=== PATIENT | female | born 1990 | race Caucasian/White ===

== ENCOUNTER 2016-12-14 18:28 | Observation (INO) | payer BC ==
[2016-12-14] MEDS ORDERED: NS 0.9% 1000 ML* 1,000 ML IV ONE ×2 (18:48→19:07)
[2016-12-14] MEDS ORDERED: Insulin REGULAR(*) 1 UNITS UNIT IV ONE (18:48)
[2016-12-14 19:08] LABS: Comments Flag Yes; Hematocrit 42 % (35-47); Hemoglobin 14.3 g/dl (12.0-16.0); Mean Corpuscular HGB Conc 34 g/dl (31-36); Mean Corpuscular Hemoglobin 30 pg (27-31); Mean Corpuscular Volume 88 fL (80-97); Red Blood Count 4.82 10^6/ul (4.0-5.4); Red Cell Distribution Width 13 % (10.5-15); White Blood Count 13.3 10^3/ul (3.5-10.8)
[2016-12-14 19:09] LABS: Add Diff/Slide Review? Slide Review Added
[2016-12-14 19:15] LABS: ALT 10 U/L (7-52); AST 11 U/L (13-39); Albumin 4.6 g/dL (3.2-5.2); Alkaline Phosphatase 54 U/L (34-104); Anion Gap 16 mmol/L (2-11); BUN/Creatinine Ratio 16.9 (8-20); Blood Urea Nitrogen 15 mg/dL (6-24); C Reactive Protein 2.45 mg/L (< 5.00); CO2 Carbon Dioxide 21 mmol/L (22-32); Chloride 94 mmol/L (101-111); Creatine Kinase 36 U/L (10-223); EGFR African American 98.6 (>60); EGFR Non-African American 76.7 (>60); Globulin 3.3 g/dL (2-4); Magnesium 1.8 mg/dL (1.9-2.7); Sodium 131 mmol/L (133-145); Total Protein 7.9 g/dL (6.4-8.9)
[2016-12-14 19:18] LABS: Troponin I 0.01 ng/mL (<0.04)
[2016-12-14 19:23] LABS: Glucose 508 mg/dL (70-100)
[2016-12-14] MEDS ORDERED: Ondansetron INJ* 2 MG/ML VIAL IV ONE (19:25)
--- NOTE | 2016-12-14 19:31 | RAD ---
INDICATION: Hyperglycemia. COMPARISON: None. TECHNIQUE: Single AP portable view of the chest was obtained. FINDINGS: Image quality is compromised due to the relative inferiority of a portable chest x-ray. The heart and mediastinum exhibit normal size and contour. The lungs are grossly clear. There is no evidence of a large pleural effusion. Visualized bones are normal for the patient's age. IMPRESSION: No radiographic evidence for acute cardiopulmonary abnormality on this portable chest x-ray.
[2016-12-14 19:51] LABS: Urine Bacteria Absent (Absent); Urine Bilirubin Negative (Negative); Urine Glucose 3+(>=500 mg/dL) (Negative); Urine Nitrite Negative (Negative)
[2016-12-14 19:53] LABS: Venous Bicarbonate HCO3 18.1 mmol/L (24-28)
[2016-12-14] MEDS ORDERED: Dextrose 50% Syringe 50 ML* 25 GM/50 ML SYRINGE IV PUSH PRN (19:58)
[2016-12-14] MEDS ORDERED: NS 0.9% 1000 ML* 2,000 ML IV ONE (19:58)
[2016-12-14] MEDS ORDERED: Ondansetron INJ* 2 MG/ML VIAL IV PRN (19:58)
[2016-12-14] MEDS ORDERED: Acetaminophen TAB* 325 MG PO PRN (19:58)
[2016-12-14] MEDS ORDERED: Magnesium Sulfate 2 GM IV* 2 GM/50 ML BAG IVPB ONE (20:13)
[2016-12-14] MEDS: NS 0.9% 1000 ML* 1,000 ML IV SCH (21:46)
[2016-12-14 22:24] LABS: BUN/Creatinine Ratio 18.3 (8-20); Calcium 7.7 mg/dL (8.6-10.3); EGFR African American 155.4 (>60); EGFR Non-African American 120.8 (>60); Potassium 3.5 mmol/L (3.5-5.0)
--- NOTE | 2016-12-14 22:36 | HP ---
CC: HISTORY AND PHYSICAL: DATE OF ADMISSION: 12/14/16 PRIMARY CARE PROVIDER: ATTENDING PHYSICIAN WHILE IN THE HOSPITAL: Dr. Jm Flynn * (report dictated by Yoly Catalan NP). CHIEF COMPLAINT: Nausea and vomiting. HISTORY OF PRESENT ILLNESS: Ms. Casper is a 26-year-old female patient with a history of type 1 diabetes who comes in today, says in the last couple of weeks her sugars have been running in the 200s to 300s, at times in the 400. She says that her A1c is normally right around 6.0 to 6.5. She says that she today woke up, felt nauseated, then she vomited about 5 times. She started to feel herself getting dehydrated. She was concerned and came into the ER because she has had issues in the past with dehydration and DKA. She says that she does not have any stomach pain. Denies having any chest pain or shortness of breath. She denies having any abdominal discomfort. She denies having any nausea currently. She says after fluids she is feeling a little bit better. She denied having any fevers or chills. No upper respiratory type symptoms. She denied having any diarrhea and denied having any dysuria or frequency. She came into the ED, was evaluated in here today and it was noted that she appeared to have mild DKA, so the hospitalist service was asked to evaluate for admission. PAST MEDICAL HISTORY: Significant for type 1 diabetes. PAST SURGICAL HISTORY: She has had D and C x2. HOME MEDICATIONS: Include: 1. Insulin NovoLog basal rate per pump and boluses as directed. 2. Zofran 4 mg sublingual every 6 hours as needed. 3. NuvaRing. ALLERGIES TO MEDICATIONS: Include no known drug allergies. FAMILY HISTORY: Reviewed, noncontributory. She says that her parents do not have diabetes. They do not have heart disease and she denies them having any history of cancer. SOCIAL HISTORY: She does not smoke. She does no drink. She is . Surrogate decision maker is her mother. She does work at [employer]. REVIEW OF SYSTEMS: There is no documented fever. She denied having any significant weight change. There was no double vision. She denies having any ear discharge. There is no rhinorrhea. No sore throat. No thyroid enlargement. She denied having any chest pain. There was no orthopnea. There was no nocturnal dyspnea. There was no abdominal pain. There was no nausea. There was some vomiting. There is no dysuria. No frequency. No seizure. No loss of consciousness. No pruritus and no skin ulcerations. Review of 14 systems completed, all others negative. PHYSICAL EXAMINATION GENERAL: At this time, Ms. Casper is a 26-year-old female patient. She appears to be well nourished, well-developed. She does not appear to be in any acute distress. VITAL SIGNS: Blood pressure 108/61, pulse 120, respirations 18, O2 sat 99%, and temperature 98.5. HEENT: Head is atraumatic and normocephalic. Eyes: EOMs are intact. Sclerae anicteric and not pale. Throat: Oral mucosa appears to be dry. No oropharyngeal erythema. NECK: Supple. LUNGS: Clear to auscultation bilaterally. No wheezes, rales, or rhonchi. HEART: Sounds S1, S2. She is tachycardic. ABDOMEN: Soft, flat, nontender. Bowel sounds present. EXTREMITIES: Pulses 2+ throughout. Able to move all 4 extremities with 5/5 strength. NEUROLOGICAL: The patient is awake, alert and oriented x3. Tongue midline. Apartment Rental Agent are equal. She had no gross focal deficits. SKIN: Intact. DIAGNOSTIC STUDIES/LAB DATA: Labs today revealed WBC 13.3, RBC of 4.82, hemoglobin 14.3, hematocrit of 42, platelet count of 195. INR 0.95, PTT of 20.6. The pH was 76, pCO2 was 47, pO2 14, bicarb 18. Chemistry revealed sodium 131, potassium 4.0, chloride 94, bicarb 21, BUN 15, anion gap was 16, creatinine 0.89, glucose was 508, lactic 2.2, calcium 10, total cholesterol 0.9 , AST 11, ALT 10. Urine negative. Albumin 4.6, troponin 0.01. Urine showed 2+ ketones, 1+ blood, present squamous epithelial cells, 3+ bacteria. She did have a chest x-ray obtained today, which showed no radiographic evidence for acute cardiopulmonary disease. She had an EKG obtained today, shows sinus tachycardia, rate of 115. No ST elevation or T- wave inversions. Old medical records were reviewed. ASSESSMENT AND PLAN: Ms. Casper is a 26-year-old female patient coming into the ER today with complaints of nausea and now vomiting. We were asked to evaluate for admission as it appeared that she is in mild diabetic ketoacidosis. She will be admitted under observation status for: 1. Diabetic ketoacidosis. At this point, I do not think she needs insulin drip , she was bolused down here. She will be again given fluids. We will give her 2 more L wide open with normal saline 150 an hour. I am going to continue her basal rate of subcu insulin. We will check fingerstick every 2 hours. In addition to this, she will be n.p.o. until her gap closes, we will get BMPs every 6 hours to follow closely and fingersticks every 2 hours to monitor her. Should we not be able to close the gap with this approach, then we would certainly consider starting her on the insulin drip, but again her bicarb is 21 and her anion gap is 16 and hopefully, we can close this with fluids and the one bolus of IV insulin she got down here, we will follow her closely. 2. Type 1 diabetes, again not well controlled. I am going to add on an A1c and we will continue to follow. We will get her back on her regimen after we can close the gap and resolve mild diabetic ketoacidosis. 3. Nausea and vomiting. I suspect this is probably a viral gastroenteritis. We will keep her hydrated. We will follow her closely. If she spikes any fevers, then I would have a low threshold to panculture her. We will obtain imaging, but she has a benign abdominal exam at this point, so I think we can monitor. 4. DVT prophylaxis. She is low risk. She will be placed on SCDs. 5. Code status. Full code. 6. Fluids, electrolytes, nutrition. She is n.p.o. pending her laboratory findings and then we could consider starting a clear liquid diet after again her anion gap resolves and her mild acidosis resolves. TIME SPENT: Time spent on the admission 60 minutes with greater than half the time spent [id number] with the patient obtaining my history and physical, other half time was spent going over the plan of care with the patient and implementing plan of care. I did discuss the plan of care with my attending physician, Dr. Flynn, she is in agreement. YOLY CATALAN, CLOTH BLEACHING RANGE TENDER [id number]/[facility] #: [id number] [facility]ITALPey[facility]
[2016-12-14] MEDS: Insulin LISPRO* 1 UNITS UNIT SUBCUT SCH (22:44)
[2016-12-15] MEDS ORDERED: traMADol TAB* 50 MG PO PRN (02:15)
--- NOTE | 2016-12-15 03:50 | ED ---
Aaliyah Fitzpatrick Thomas, scribed for Angelica Hayes MD on 12/14/16 at 1919 . HPI Diabetic - HPI Summary HPI Summary: The pt is a 26 y/o F with a Hx of Type 1 DM who presents to the ED c/o eight vomiting episodes that began today at 16:30. The vomiting appears to be bile, and she has vomited approximately 150cc of bile in the ED. The vomiting is aggravated and alleviated by nothing. The patient has treated the vomiting with Zofran NAVAL ARCHITECT. She last took Zofran at 16:00. She uses an insulin pump. The patient has not had insulin since vomiting. She reports that her blood glucose measurements have been erratic in the last few weeks. She is not on any medications other than her insulin pump and Zofran PRN. The patient also complains of generalized illness for the last few days. The patient speculates that this episode may have been provoked by stress. She has not had DKA in a long time. The patient reports that her A1c is 6.4. She does not have any end- stage complications of DM. PMHx: Type 1 DM (diagnosed at 11). PSHx: D&C (x2). SHx: no smoking, no alcohol use, no illicit drug use. LNMP 10/08/16. This is her second month of the [facility]. She is accompanied by Dr. Chavarria, a principal examiner, who politely excuses himself when the patient is examined. Patient s medication reviewed this visit. - History Of Current Complaint Chief Complaint: EDNauseaVomitDiarrh Time Seen by Provider: 12/14/16 18:48 Hx Obtained From: Patient, Other: - She is accompanied by Dr. Chavarria, a principal examiner, who politely excuses himself when the patient is examined Hx Last Menstrual Period: 10/08/16 Onset/Duration: Sudden Onset, Lasting Hours - started vomitted at 16:30 today, Still Present Timing: Constant Severity Initially: Moderate Severity Currently: Severe Character: Alert Aggravating: Nothing Alleviating: Nothing Associated Signs & Symptoms: Nausea, Vomiting - 8x since 16:30 Related History: Compliant, DM I, Hx of DKA - although "a very long time ago", Insulin Pump - Risk Factors Cardiac Risk Factors: Diabetes - Allergies/Home Medications Allergies/Adverse Reactions: Allergies Allergy/AdvReac Type Severity Reaction Status Date / Time No Known Allergies Allergy Verified 12/14/16 18:37 Home Medications: Home Medications Insulin Infusion Pump 1 units INTRADERM SEE INSTRUCTIONS 12/15/16 [History Confirmed 12/15/16] Zofran 4 MG TAB 4 mg SL Q6HR PRN 12/15/16 [History Confirmed 12/15/16] PMH/Surg Hx/FS Hx/Imm Hx Previously Healthy: No Endocrine/Hematology History: Reports: Hx Diabetes - Hx Type 1 DM (diagnosed when 11) Cardiovascular History: Denies: Hx Myocardial Infarction - Surgical History Surgery Procedure, Year, and Place: D&C (x2) Infectious Disease History: No Infectious Disease History: Denies: Traveled Outside the [place] in Last 30 Days - Family History Known Family History: Positive: Other - POS: breast CA - Social History Occupation: Employed Full-time Alcohol Use: None Substance Use Type: Reports: None Smoking Status (MU): Never Smoked Tobacco Review of Systems Positive: Other - POS: generalized illness (for the last few days), erratic blood glucose (in the last few weeks). Negative: Fever Eyes: Negative ENT: Negative Cardiovascular: Negative Respiratory: Negative Positive: Vomiting - 8x and in the ED, Nausea Positive: no symptoms reported Skin: Negative Neurological: Negative Psychological: Normal All Other Systems Reviewed And Are Negative: Yes Physical Exam Triage Information Reviewed: Yes Vital Signs On Initial Exam: Initial Vitals Temp Pulse Resp BP Pulse Ox 98.5 F 115 18 116/73 100 12/14/16 18:34 12/14/16 18:34 12/14/16 18:34 12/14/16 18:34 12/14/16 18:34 Vital Signs Reviewed: Yes Appearance: Positive: No Pain Distress, Well-Nourished, Ill-Appearing - mild Skin: Positive: Warm, Skin Color Reflects Adequate Perfusion Head/Face: Positive: Normal Head/Face Inspection Eyes: Positive: Conjunctiva Clear ENT: Positive: Normal ENT inspection, Pharynx normal Neck: Positive: Supple Respiratory/Lung Sounds: Positive: Clear to Auscultation, Breath Sounds Present , Other - No respiratory distress Cardiovascular: Positive: Pulses are Symmetrical in both Upper and Lower Extremities, Tachycardia, Other - She is tachycardic. Regular rhythm. Brisk cap refill.. Negative: Murmur Abdomen Description: Positive: Nontender, No Organomegaly, Soft Bowel Sounds: Positive: Present Musculoskeletal: Positive: Strength/ROM Intact Neurological: Positive: Sensory/Motor Intact, Alert, Oriented to Person Place, Time, Facial Symmetry, Speech Normal Psychiatric: Positive: Normal - Ramon Coma Scale Coma Scale Total: 15 Diagnostics - Vital Signs Vital Signs Temp Pulse Resp BP Pulse Ox 12/14/16 18:46 122 108/61 98 12/14/16 18:44 120 99 12/14/16 18:34 98.5 F 115 18 116/73 100 - Laboratory Lab Results: Lab Results 12/14/16 12/14/16 12/14/16 Range/Units 18:51 18:51 18:51 WBC 13.3 H (3.5-10.8) 10^3/ul RBC 4.82 (4.0-5.4) 10^6/ul Hgb 14.3 (12.0-16.0) g/dl Hct 42 (35-47) % MCV 88 (80-97) fL MCH 30 (27-31) pg MCHC 34 (31-36) g/dl RDW 13 (10.5-15) % Plt Count Pending Neut % (Auto) 79.3 (38-83) % Lymph % (Auto) 16.8 L (25-47) % Millard % (Auto) 3.3 (1-9) % Eos % (Auto) 0.1 (0-6) % Baso % (Auto) 0.5 (0-2) % Absolute Neuts (auto) 10.5 H (1.5-7.7) 10^3/ul Absolute Lymphs (auto) 2.2 (1.0-4.8) 10^3/ul Absolute Monos (auto) 0.4 (0-0.8) 10^3/ul Absolute Eos (auto) 0 (0-0.6) 10^3/ul Absolute Basos (auto) 0.1 (0-0.2) 10^3/ul Absolute Nucleated RBC 0 10^3/ul Nucleated RBC % 0 INR (Anticoag Therapy) 0.94 (0.89-1.11) APTT 20.6 L (26.0-36.3) seconds Sodium 131 L (133-145) mmol/L Potassium 4.0 (3.5-5.0) mmol/L Chloride 94 L (101-111) mmol/L Carbon Dioxide 21 L (22-32) mmol/L Anion Gap 16 H (2-11) mmol/L BUN 15 (6-24) mg/dL Creatinine 0.89 (0.51-0.95) mg/dL Est GFR ( Amer) 98.6 (>60) Est GFR (Non-Af Amer) 76.7 (>60) BUN/Creatinine Ratio 16.9 (8-20) Glucose Pending Calcium 10.0 (8.6-10.3) mg/dL Magnesium 1.8 L (1.9-2.7) mg/dL Total Bilirubin 0.90 (0.2-1.0) mg/dL AST 11 L (13-39) U/L ALT 10 (7-52) U/L Alkaline Phosphatase 54 (34-104) U/L Total Creatine Kinase 36 (10-223) U/L Troponin I 0.01 (<0.04) ng/mL C-Reactive Protein 2.45 (< 5.00) mg/L Total Protein 7.9 (6.4-8.9) g/dL Albumin 4.6 (3.2-5.2) g/dL Globulin 3.3 (2-4) g/dL Albumin/Globulin Ratio 1.4 (1-3) Beta HCG, Quant Pending Result Diagrams: 12/14/16 18:51 12/14/16 22:01 Lab Statement: Any lab studies that have been ordered have been reviewed, and results considered in the medical decision making process. - Radiology CXR Xray Interpretation: No Acute Changes - CXR is negative for acute cardiopulmonary abnormality. ED physician has read this report and agrees. Radiology Interpretation Completed By: Radiologist - EKG 19:27 Cardiac Rate: Tachycardia - Sinus tachycardia. Nml AV/IV/QTc/[place]. Re-Evaluation - Re-Evaluation First Eval Re-Evaluation Time: 19:20 - advised of lab results and need for admission. No further vomiting in ED. Change: Improved Diabetic Course/Dx - Course Course Of Treatment: Pt given IV fluids, zofran 4mg IV and 10U regular insulin IV, and insulin drip requested from pharmacy pending labs when initial FS glucose was too high to measure. Initial hypotension 77/52 responded rapidly to IV fluids. Pt admitted for glucose control and management of vomiting. - Diagnoses Differential Dx: Diabetic Ketoacidosis, Hyperglycemia, Sepsis Provider Diagnoses: DKA, type 1, Vomiting - Physician Notifications Discussed Care Of Patient With: Jm Flynn Time Discussed With Above Provider: 19:30 Instructed by Provider To: Admit As Observation - I made Dr. Flynn, hospitalist, aware of the patient. - Critical Care Time Critical Care Time: 30-74 min - 30 minutes Discharge - Discharge Plan Condition: Stable Disposition: ADMITTED TO [facility] documentation as recorded by the Aaliyah quinn Thomas accurately reflects the service I personally performed and the decisions made by Freddy kat Barbara J, MD.
[2016-12-15 04:14] LABS: Hematocrit 33 % (35-47); Hemoglobin 11.2 g/dl (12.0-16.0); Mean Corpuscular HGB Conc 34 g/dl (31-36); Mean Corpuscular Hemoglobin 30 pg (27-31); Mean Corpuscular Volume 88 fL (80-97); Mean Platelet Volume 12 um3 (7.4-10.4); Red Blood Count 3.71 10^6/ul (4.0-5.4); Red Cell Distribution Width 12 % (10.5-15)
[2016-12-15 04:15] LABS: Add Diff/Slide Review? Slide Review Added; Comments Flag Yes
[2016-12-15] MEDS: Insulin LISPRO* 1 UNITS UNIT SUBCUT SCH ×3 (04:25→10:25)
[2016-12-15 04:37] LABS: BUN/Creatinine Ratio 14.5 (8-20); Calcium 7.7 mg/dL (8.6-10.3); EGFR African American 171.8 (>60); EGFR Non-African American 133.6 (>60)
[2016-12-15] MEDS: NS 0.9% 1000 ML* 1,000 ML IV SCH (04:39)
[2016-12-15 10:37] LABS: BUN/Creatinine Ratio 12.1 (8-20); Calcium 7.8 mg/dL (8.6-10.3); EGFR African American 161.6 (>60); EGFR Non-African American 125.7 (>60); Potassium 3.6 mmol/L (3.5-5.0)
[2016-12-15 13:04] VITALS: BP 106/68
--- NOTE | 2016-12-16 04:32 | DS ---
DISCHARGE SUMMARY: DATE OF ADMISSION: 12/14/16 DATE OF DISCHARGE: 12/15/16 DISCHARGE DIAGNOSIS: Diabetic ketoacidosis. SECONDARY DIAGNOSIS: Diabetes, type 1, on insulin pump. MEDICATIONS AT DISCHARGE: Include: 1. Insulin NovoLog continuous infusion via insulin pump. 2. Zofran 4 mg every 6 hours p.r.n. nausea and vomiting. LABORATORY DATA AND STUDIES PERFORMED DURING THE HISTORY STAY: Included: On , white blood cell count of 9.0, hemoglobin of 11.2, hematocrit of 33, and platelets of 180. Sodium was 135, potassium 3.6, chloride 111, carbon dioxide 18, BUN 7, creatinine 0.58. Last blood glucose measurement was 169 prior to discharge. Portable chest x-ray obtained at admission, impression: "No radiographic evidence of acute cardiopulmonary abnormality of this portable chest x-ray." The patient's urinalysis was positive for ketones and trace amount of blood, otherwise unremarkable. HOSPITALIZATION COURSE: Daysi Casper is a 26-year-old female with history of diabetes type 1, on insulin pump, who presented to the hospital complaining of nausea and vomiting. She was noted to have mild acidosis with a pH of 7.26 on her ABG. She was diagnosed with mild DKA and placed on the medical floor. She was bolused with IV insulin, but later on she was continued on insulin subcutaneously with generous intravenous fluid resuscitation. She did very well during her less than 24-hour hospital stay. By the time of discharge, she was able to tolerate her diet. She had no complaints and she stated that in fact the nausea and vomiting were likely due to her uncontrolled sugars and mild DKA. She stated that she has lots of stressors at home and work that could have contributed to her significant blood sugars. There are no medication changes at discharge. PHYSICAL EXAMINATION: At the time of discharge, blood pressure of 106/68, heart rate of 99 and regular, respiratory rate 16, oxygen saturation 100% on room air, temperature 100.5. General: The patient is a very pleasant 26-year- old female, who is in no acute distress. Alert, awake, and oriented x3. HEENT : Head atraumatic, normocephalic. Eyes: Pupils are equal and reactive to light and accommodation. Oropharynx clear. Mucosa moist. Neck: Supple. No JVD. No bruits bilaterally. Cardiovascular: Regular rate and rhythm. No murmur. Respiratory: Clear to auscultation bilaterally. Abdomen: Soft, nontender. Bowel sounds are present in all 4 quadrants. Extremities: There is no edema. Pulses are +2 bilaterally. There is no clubbing or cyanosis. Neuro evaluation grossly nonfocal. Cranial nerves II through XII grossly intact. Motor strength is 5/5 bilaterally. Please note that this is a short summary of this patient's hospitalization. Please refer to further medical records for details. [id number]/[facility] #: [id number] [facility]
== END 2016-12-15 13:30 | disposition home or self-care (01) ==
LOC: ED 18:28 → MEDTELE 19:51
PROVIDERS: ADMIT Hospitalist; ATTEND Internal Medicine
DX: E10.10 Type 1 diabetes mellitus with ketoacidosis without coma (principal); Z79.4 Long term (current) use of insulin; Z96.41 Presence of insulin pump (external) (internal); R11.2 Nausea with vomiting, unspecified; R00.0 Tachycardia, unspecified; R31.9 Hematuria, unspecified
CPT/HCPCS: 36415; 71010; 80048; 80053; 81003; 81015; 82550; 82803; 83036; 83605; 83735; 84484; 84702; 85025; 85610; 85730; 86140; 87040; 93005; 96361; 96365; 96375; 99291; G0378; J2405; J3475